=== PATIENT | female | born 1960 | race Caucasian/White ===

== ENCOUNTER → 2017-01-19 | Outpatient (CLI) | payer OTHER ==
--- NOTE | 2017-01-19 11:17 | US ---
EXAMINATION TYPE: US venous doppler duplex LE DATE OF EXAM: 01/19/2017 10:43 AM COMPARISON: LOWER EXTREMITY VENOUS INSUFFICIENCY SIDE PERFORMED: bilateral for chronic venous insufficiency with history of varicose veins, especiall y bilateral thighs, and history of leg pain and swelling. 1) Color flow is present and patency is documented in the following vessels. No DVT or SVT is noted . Common Femoral Vein Deep Femoral Vein Femoral Vein Popliteal Vein Proximal Calf Veins Greater Saphenous Vein Upper Small Saphenous Vein 2) There is venous reflux noted at the following venous levels: in the Deep Venous System of the Ri ght leg at upper Right Deep Femoral Vein and in Left leg at Left CFV. Superficial varicosities visibl e on bilateral legs with tortuous veins noted anteriorly on images # 26 and 48. 3) Incompetent perforators are noted at these levels: 0 IMPRESSION: 1. Superficial venous varicosities are present. 2. Venous reflux evident within the deep femoral vein on the right and at the left common femoral vei n.
== END ==
LOC: RADUSWWP 10:02
PROVIDERS: ATTEND Family Medicine
DX: I86.8 Varicose veins of other specified sites (principal)
CPT/HCPCS: 93970

== ENCOUNTER → 2017-07-07 | Outpatient (CLI) | payer OTHER ==
--- NOTE | 2017-07-09 12:11 | MM ---
Reason for exam: screening (asymptomatic). Last mammogram was performed 6 years ago. History: Excisional biopsy of the right breast, September 20, 2006. Benign right mammotome panel of the right breast, August 25, 2005. Physical Findings: A clinical breast exam by your physician is recommended on an annual basis and results should be correlated with mammographic findings. MG 3D Screening Mammo W/Cad Bilateral CC and MLO view(s) were taken. Prior study comparison: July 04, 2011, mammogram. November 03, 2010, mammogram. There are scattered fibroglandular densities. No suspicious abnormality. Post biopsy marker change on right right breast. ASSESSMENT: Benign, BI-RAD 2 RECOMMENDATION: Routine screening mammogram of both breasts in 1 year.
== END | disposition home or self-care (01) ==
LOC: RADMAMWWP 09:28
PROVIDERS: ATTEND Family Medicine
DX: Z12.31 Encounter for screening mammogram for malignant neoplasm of breast (principal)
CPT/HCPCS: 77063; 77067

== ENCOUNTER → 2019-11-24 | Outpatient (CLI) | payer OTHER ==
[2019-11-24 14:02] VITALS: BP 116/78; PULSE 71; RESP 16; TEMP 98.4; BMI 31.1
--- NOTE | 2019-12-01 14:01 | P.HPBAR ---
Bariatric H&P - History & Physicial H&P Date: 11/24/19 History & Physicial: Visit/CC: Having issues with band Patient initial contact: Initial weight: 89.811 kg Initial weight in pounds: 198.00 Height: 5 ft 3 in Initial BMI: 35.0 Last weight: Current weight: 79.634 kg Current weight in pounds: 175.56 Current BMI: 31.1 [place] body weight (based on NIH guidelines): 52.163 kg Excess body weight loss: 27.0% The patient is a 59 year-old F who presents for Bariatric Assessment. Patient has complaints of pain at her port site. She's had some minimal dysphagia. He presents today for lab band follow up. Past Medical History History of Any Multi-Drug Resistant Organisms: None Reported Past Surgical History: Bariatric Surgery Additional Past Surgical History / Comment(s): lap band 12-15-2003 Past Anesthesia/Blood Transfusion Reactions: No Reported Reaction Past Psychological History: No Psychological Hx Reported Smoking Status: Never smoker, Unknown if ever smoked Past Alcohol Use History: None Reported Surgical - Exam Vital Signs Temp Pulse Resp BP 98.4 F 71 16 116/78 11/24/19 13:58 11/24/19 13:58 11/24/19 13:58 11/24/19 13:58 - General well developed, well nourished, moderate distress - Eyes PERRL - ENT normal pinna - Neck no masses - Respiratory normal expansion - Cardiovascular Rhythm: regular - Abdomen Abdomen: soft, non tender Bariatric Assessment & Plan Plan: Patient's lap band was empty. She had 1.8 mL remove her band. She currently is 0 mL in the band. She'll follow-up in 3 weeks. Bariatric Checklist Checklist: Plan: Checklist: EGD: 1. Hiatal hernia: 2. H. Pylori: HgbA1c: Vitamin D: Smoking: Primary care physician referral: Karina Shen Psychiatry clearance: Cardiology clearance: Sleep study: Diet journal: VTE risk score: VTE risk level: Rehab needs at discharge:
== END | disposition home or self-care (01) ==
LOC: BARWHC3 13:33
PROVIDERS: ATTEND Surgery
DX: Z46.51 Encounter for fitting and adjustment of gastric lap band (principal)
CPT/HCPCS: 99201

== ENCOUNTER → 2020-11-15 | Outpatient (CLI) | payer SELFPAY ==
[2020-11-15 13:20] VITALS: BP 153/86; PULSE 61; RESP 18; TEMP 97.9; BMI 34.9
--- NOTE | 2020-11-15 16:29 | P.HPBAR ---
Bariatric H&P - History & Physicial H&P Date: 11/15/20 History & Physicial: Visit/CC: follow up / lap band Patient initial contact: Initial weight: 89.811 kg Initial weight in pounds: 198.00 Height: 5 ft 3 in Initial BMI: 35.0 Last weight: Current weight: 89.358 kg Current weight in pounds: 197.00 Current BMI: 34.9 [place] body weight (based on NIH guidelines): 52.163 kg Excess body weight loss: 1.2% The patient is a 60 year-old F who presents for Bariatric Assessment. Patient is requesting a fill of her LAP-BAND. Past Medical History Past Medical History: GERD/Reflux History of Any Multi-Drug Resistant Organisms: None Reported Past Surgical History: Bariatric Surgery Additional Past Surgical History / Comment(s): lap band 12-15-2003 Past Anesthesia/Blood Transfusion Reactions: No Reported Reaction Smoking Status: Never smoker, Unknown if ever smoked Surgical - Exam Vital Signs Temp Pulse Resp BP 97.9 F 61 18 153/86 11/15/20 13:13 11/15/20 13:13 11/15/20 13:13 11/15/20 13:13 - General well developed, well nourished, no distress - Eyes PERRL - ENT normal pinna, normal nares - Abdomen Abdomen: soft, non tender Bariatric Assessment & Plan Plan: Patient LAP-BAND was adjusted. She had 1.5 mL added to her band. She was able to water without difficulty. She'll follow-up in 4 weeks. Bariatric Checklist Checklist: Plan: Checklist: EGD: 1. Hiatal hernia: 2. H. Pylori: HgbA1c: Vitamin D: Smoking: Primary care physician referral: Karina Shen Psychiatry clearance: Cardiology clearance: Sleep study: Diet journal: VTE risk score: VTE risk level: Rehab needs at discharge:
== END ==
LOC: BARWHC3 12:55
PROVIDERS: ATTEND Surgery
DX: Z46.51 Encounter for fitting and adjustment of gastric lap band (principal); Z98.84 Bariatric surgery status; Z91.048 Other nonmedicinal substance allergy status; Z91.040 Latex allergy status; Z88.8 Allergy status to other drugs, medicaments and biological substances; Z91.09 Other allergy status, other than to drugs and biological substances
CPT/HCPCS: 99212

== ENCOUNTER → 2020-12-13 | Outpatient (CLI) | payer SELFPAY ==
[2020-12-13 13:22] VITALS: BP 144/101; PULSE 67; RESP 16; TEMP 98.4; BMI 34.0
--- NOTE | 2020-12-29 12:32 | P.HPBAR ---
Bariatric H&P - History & Physicial H&P Date: 12/13/20 History & Physicial: Visit/CC: BAND ADJ Patient initial contact: Initial weight: 89.811 kg Initial weight in pounds: 198.00 Height: 5 ft 3 in Initial BMI: 35.0 Last weight: Current weight: 87.09 kg Current weight in pounds: 192.00 Current BMI: 34.0 [place] body weight (based on NIH guidelines): 52.163 kg Excess body weight loss: 7.2% The patient is a 60 year-old F who presents for Bariatric Assessment. Should presents today for her Giovani adjusted. She wishes of fluid at her band. Past Medical History Past Medical History: GERD/Reflux History of Any Multi-Drug Resistant Organisms: None Reported Past Surgical History: Bariatric Surgery Additional Past Surgical History / Comment(s): lap band 12-15-2003 Past Anesthesia/Blood Transfusion Reactions: No Reported Reaction Smoking Status: Never smoker, Unknown if ever smoked Surgical - Exam Vital Signs Temp Pulse Resp BP 98.4 F 67 16 144/101 12/13/20 13:20 12/13/20 13:20 12/13/20 13:20 12/13/20 13:20 - General well developed, well nourished, no distress - Eyes PERRL - Abdomen Abdomen: soft, non tender Bariatric Assessment & Plan Plan: Patient LAP-BAND was adjusted. She had 0.4 mL added her band. She does 1.9 mL in the band. She'll follow-up in 4 weeks. Bariatric Checklist Checklist: Plan: Checklist: EGD: 1. Hiatal hernia: 2. H. Pylori: HgbA1c: Vitamin D: Smoking: Primary care physician referral: Karina Shen Psychiatry clearance: Cardiology clearance: Sleep study: Diet journal: VTE risk score: VTE risk level: Rehab needs at discharge:
== END ==
LOC: BARWHC3 13:01
PROVIDERS: ATTEND Surgery
DX: Z46.51 Encounter for fitting and adjustment of gastric lap band (principal); Z98.84 Bariatric surgery status; Z91.048 Other nonmedicinal substance allergy status; Z91.040 Latex allergy status; Z88.8 Allergy status to other drugs, medicaments and biological substances; Z91.09 Other allergy status, other than to drugs and biological substances
CPT/HCPCS: 99212

== ENCOUNTER 2021-01-04 15:03 | Emergency (ER) | payer OTHER ==
[2021-01-04 15:18] VITALS: RESP 18; TEMP 100.3
[2021-01-04] MEDS ORDERED: ACETAMINOPHEN TAB 325 MG TAB PO STA (16:03)
[2021-01-04] MEDS ORDERED: SODIUM CHLORIDE 0.9% 50 ML IVPB ONE (16:45)
[2021-01-04 16:52] LABS: ALT 18 U/L (4-34); AST 32 U/L (14-36); African American GFR (CKD) >90 (>60 ml/min/1.73 sqM); Albumin 4.3 g/dL (3.5-5.0); Alkaline Phosphatase 108 U/L (38-126); Anion Gap 12 mmol/L; Blood Urea Nitrogen 13 mg/dL (7-17); Calcium 8.9 mg/dL (8.4-10.2); Carbon Dioxide 22 mmol/L (22-30); Chloride 96 mmol/L (98-107); Glucose 133 mg/dL (74-99); Non-African American GFR(CKD) >90 (>60 ml/min/1.73 sqM); Potassium 3.7 mmol/L (3.5-5.1); Sodium 130 mmol/L (137-145); Total Bilirubin 0.6 mg/dL (0.2-1.3); Total Protein 7.2 g/dL (6.3-8.2)
[2021-01-04] MEDS ORDERED: CASIRIVIMAB (REGN10933) (EUA) 600 MG, IMDEVIMAB (REGN10987) (EUA) 600 MG in SODIUM CHLO... IVPB ONE (17:00)
[2021-01-04 17:01] LABS: Basophils % (A) 1 %; Eosinophils % (A) 1 %; HCT 41.9 % (34.0-46.0); HGB 14.5 gm/dL (11.4-16.0); Lymphocytes # (A) 0.5 k/uL (1.0-4.8); Lymphocytes % (A) 10 %; MCH 33.3 pg (25.0-35.0); MCHC 34.6 g/dL (31.0-37.0); Monocytes # (A) 0.3 k/uL (0-1.0); Monocytes % (A) 5 %; Neutrophils # (A) 4.1 k/uL (1.3-7.7); Neutrophils % (A) 82 %; Platelet Count 120 k/uL (150-450); RBC 4.36 m/uL (3.80-5.40); RDW 13.7 % (11.5-15.5)
--- NOTE | 2021-01-04 17:12 | XR ---
EXAMINATION TYPE: XR chest 1V portable DATE OF EXAM: 01/04/2021 COMPARISON: NONE HISTORY: Short of breath TECHNIQUE: Single view FINDINGS: There is no heart failure nor confluent pneumonic infiltrate. Costophrenic angles are clear . There is slight increased lung markings at the lung bases. There are chest leads. IMPRESSION: Minimal subsegmental atelectasis or interstitial density at the lung bases. Normal heart.
--- NOTE | 2021-01-04 17:15 | ED ---
General Adult HPI - General Chief complaint: Upper Respiratory Infection Stated complaint: COVID +, wants BAM Time Seen by Provider: 01/04/21 15:31 Source: patient Mode of arrival: ambulatory Limitations: no limitations - History of Present Illness Initial comments: The patient is a 60-year-old female with past medical history of bariatric surgery who presents to the emergency department with reported shortness of breath. She states she has been sick since December 28. She has had chest pressure, cough, body aches and fever. She did go and have a Covid test performed on the . She does receive the results and they were positive for Covid. She did do a tele-health medicine with her primary care doctor who recommended that she come in the hospital for antibody treatment. The patient denies any chest pain. No previous history of cardiac or lung disease. She has not been taking any medications at home for her symptoms. Denies vomiting. Admits to nausea. No other alleviating, precipitating or modifying factors - Related Data Previous Rx's Medication Instructions Recorded Albuterol Sulfate [Proair Hfa] 1 - 2 puff INHALATION Q4HR PRN 01/04/21 #8.5 gm Allergies Allergy/AdvReac Type Severity Reaction Status Date / Time adhesive Allergy Rash/Hives Verified 01/04/21 16:37 latex Allergy Itching Verified 01/04/21 16:37 prednisone Allergy Itching Verified 01/04/21 16:37 ragweed pollen Allergy Swelling Verified 01/04/21 16:37 Review of Systems ROS Statement: Those systems with pertinent positive or pertinent negative responses have been documented in the HPI. ROS Other: All systems not noted in ROS Statement are negative. Past Medical History Past Medical History: GERD/Reflux History of Any Multi-Drug Resistant Organisms: None Reported Past Surgical History: Bariatric Surgery Additional Past Surgical History / Comment(s): lap band 12-15-2003 Past Anesthesia/Blood Transfusion Reactions: No Reported Reaction Past Psychological History: No Psychological Hx Reported Smoking Status: Never smoker, Unknown if ever smoked General Exam Limitations: no limitations General appearance: alert, in no apparent distress Head exam: Present: atraumatic, normocephalic, normal inspection Eye exam: Present: normal appearance, PERRL, EOMI. Absent: scleral icterus, conjunctival injection, periorbital swelling ENT exam: Present: normal exam, mucous membranes moist Neck exam: Present: normal inspection. Absent: tenderness, meningismus, lymphadenopathy Respiratory exam: Present: normal lung sounds bilaterally. Absent: respiratory distress, wheezes, rales, rhonchi, stridor Cardiovascular Exam: Present: regular rate, normal rhythm, normal heart sounds. Absent: systolic murmur, diastolic murmur, rubs, gallop, clicks GI/Abdominal exam: Present: soft, normal bowel sounds. Absent: distended, tenderness, guarding, rebound, rigid Extremities exam: Present: normal inspection, full ROM, normal capillary refill. Absent: tenderness, pedal edema, joint swelling, calf tenderness Back exam: Present: normal inspection Neurological exam: Present: alert, oriented X3, CN II-XII intact Psychiatric exam: Present: normal affect, normal mood Skin exam: Present: warm, dry, intact, normal color. Absent: rash Course Vital Signs 01/04/21 01/04/21 15:16 18:34 Temperature 100.3 F H Pulse Rate 98 73 Respiratory 18 18 Rate Blood Pressure 137/88 120/75 O2 Sat by Pulse 95 99 Oximetry Medical Decision Making - Medical Decision Making Upon arrival the patient is placed into room 6. A thorough history and physical exam was performed. IV is established. Laboratories is conducted and a portal chest x-rays performed. Laboratory studies are reviewed and demonstrate a platelet count of 120. Sodium is 1:30. Chest x-ray demonstrates minimal subsegmental atelectasis or interstitial density at the lung bases. Patient does maintain saturations above 93%. Patient's does meet criteria for [place]. We did discuss diagnosis, differential and treatment options. Patient does agree to antibody infusion. Is given a dose of Tylenol for fever. Patient receives infusion well without complications. At this time she'll be discharged home. He is given a prescription for an inhaler. She was instructed to take Tylenol for fever control. She'll follow up with her primary care doctor. Return to the emergency room for any new or worsening symptoms. Did recommend that she by pulse ox. Quarantine until her symptoms improve. Patient agreed to the treatment plan and was discharged home in stable condition - Lab Data Result diagrams: 01/04/21 16:33 01/04/21 16:33 Lab Results 01/04/21 01/04/21 Range/Units 16:33 16:33 WBC 5.0 (3.8-10.6) k/uL RBC 4.36 (3.80-5.40) m/uL Hgb 14.5 (11.4-16.0) gm/dL Hct 41.9 (34.0-46.0) % MCV 96.0 (80.0-100.0) fL MCH 33.3 (25.0-35.0) pg MCHC 34.6 (31.0-37.0) g/dL RDW 13.7 (11.5-15.5) % Plt Count 120 L (150-450) k/uL MPV 11.0 Neutrophils % 82 % Lymphocytes % 10 % Monocytes % 5 % Eosinophils % 1 % Basophils % 1 % Neutrophils # 4.1 (1.3-7.7) k/uL Lymphocytes # 0.5 L (1.0-4.8) k/uL Monocytes # 0.3 (0-1.0) k/uL Eosinophils # 0.0 (0-0.7) k/uL Basophils # 0.0 (0-0.2) k/uL Sodium 130 L (137-145) mmol/L Potassium 3.7 (3.5-5.1) mmol/L Chloride 96 L (98-107) mmol/L Carbon Dioxide 22 (22-30) mmol/L Anion Gap 12 mmol/L BUN 13 (7-17) mg/dL Creatinine 0.71 (0.52-1.04) mg/dL Est GFR (CKD-EPI)AfAm >90 (>60 ml/min/1.73 sqM) Est GFR (CKD-EPI)NonAf >90 (>60 ml/min/1.73 sqM) Glucose 133 H (74-99) mg/dL Calcium 8.9 (8.4-10.2) mg/dL Total Bilirubin 0.6 (0.2-1.3) mg/dL AST 32 (14-36) U/L ALT 18 (4-34) U/L Alkaline Phosphatase 108 (38-126) U/L Total Protein 7.2 (6.3-8.2) g/dL Albumin 4.3 (3.5-5.0) g/dL Disposition Clinical Impression: COVID-19, Shortness of breath, Pyrexia Disposition: HOME SELF-CARE Condition: Stable Instructions (If sedation given, give patient instructions): Coronavirus Disease 2019 (COVID-19) Additional Instructions: You were given antibodies in the ER. Take Tylenol at home for fevers. Use the inhaler every 4 hours. Return to the ED for any new or worsening symptoms. Prescriptions: Albuterol Sulfate [Proair Hfa] 1 - 2 puff INHALATION Q4HR PRN #8.5 gm PRN Reason: difficulty in breathing Is patient prescribed a controlled substance at d/c from ED?: No Referrals: Karina Shen MD [Primary Care Provider] - 1-2 days Time of Disposition: 17:26
[2021-01-04 18:35] VITALS: BP 120/75; PULSE 73
== END 2021-01-04 18:36 | disposition home or self-care (01) ==
LOC: EC 15:03
DX: U07.1 COVID-19 (principal); R50.9 Fever, unspecified; K21.9 Gastro-esophageal reflux disease without esophagitis; Z98.84 Bariatric surgery status; Z91.040 Latex allergy status
CPT/HCPCS: 36415; 71045; 80053; 85025; 96365; 99285